=== PATIENT | female | born 1975 | race Caucasian/White ===

== ENCOUNTER → 2023-03-18 10:01 | Outpatient (REF) | payer OTHER, SELFPAY ==
[2023-03-18] VITALS (8 sets, daily range): BP systolic 91–126; BP diastolic 53–81
[2023-03-18 11:38] LABS: Body Fluid Mononuclear 93.8 %; Body Fluid Polymorphonuclear 6.2 %; Body Fluid WBC 324 /CUMM
[2023-03-18 12:01] LABS: Body Fluid Second Tech HB
== END ==
LOC: RADI 10:01
PROVIDERS: ATTENDING PHYSICIAN Internal Medicine Hematology & Oncology; FAMILY PHYSICIAN Family Medicine Geriatric Medicine
DX: C56.9 Malignant neoplasm of unspecified ovary (principal); R18.0 Malignant ascites; J90 Pleural effusion, not elsewhere classified
CPT/HCPCS: 88305; 32555; 36561; 49083; 71045; 76937; 77001; 88112; 88341; 88342; 89051; 99152; 99153; C1788

== ENCOUNTER → 2023-03-25 11:06 | Outpatient (REF) | payer OTHER, SELFPAY ==
[2023-03-25 11:20] VITALS: BP 110/64; BP_SYST 105
[2023-03-25 12:20] VITALS: BP 121/81
[2023-03-25 13:14] LABS: Body Fluid Mononuclear 96.6 %; Body Fluid Polymorphonuclear 3.4 %; Body Fluid WBC 261 /CUMM
[2023-03-25 13:15] LABS: Body Fluid Second Tech EM
== END ==
LOC: RADI 11:06
PROVIDERS: ATTENDING PHYSICIAN Internal Medicine Hematology & Oncology; FAMILY PHYSICIAN Family Medicine Geriatric Medicine
DX: R18.8 Other ascites (principal); J90 Pleural effusion, not elsewhere classified
CPT/HCPCS: 32555; 49083; 71045; 87015; 87070; 87205; 89051

== ENCOUNTER → 2023-03-31 10:16 | Outpatient (REF) | payer OTHER, SELFPAY ==
[2023-03-31 11:50] VITALS: BP 123/76; BP_SYST 97
[2023-03-31 11:52] VITALS: BP 144/76
[2023-03-31 12:21] LABS: Body Fluid Polymorphonuclear 5.6 %; Body Fluid WBC 216 /CUMM
[2023-03-31 12:22] LABS: Body Fluid Mononuclear 94.4 %
[2023-03-31 12:28] LABS: Body Fluid Second Tech CF
== END ==
LOC: RADI 10:16
PROVIDERS: ATTENDING PHYSICIAN Internal Medicine Hematology & Oncology; FAMILY PHYSICIAN Family Medicine Geriatric Medicine
DX: R18.8 Other ascites (principal); J90 Pleural effusion, not elsewhere classified
CPT/HCPCS: 32555; 49083; 71045; 89051

== ENCOUNTER → 2023-10-07 12:10 | Outpatient (REF) | payer OTHER, SELFPAY ==
[2023-10-07 12:33] VITALS: BP 119/86; BP_SYST 72
== END ==
LOC: RADI 12:10
PROVIDERS: ATTENDING PHYSICIAN Physician Assistant Medical; FAMILY PHYSICIAN Family Medicine Geriatric Medicine
DX: Z45.2 Encounter for adjustment and management of vascular access device (principal); Z85.43 Personal history of malignant neoplasm of ovary
CPT/HCPCS: 36590; 77001

== ENCOUNTER 2024-01-12 06:20 | Day surgery (SDC) | payer OTHER, SELFPAY | END 2024-01-12 11:30 | disposition home or self-care (01) | LOC: GI 06:20 | PROVIDERS: ATTENDING PHYSICIAN Internal Medicine Gastroenterology | DX: Z09 Encounter for follow-up examination after completed treatment for conditions other than malignant neoplasm (principal); Z86.0101 Personal history of adenomatous and serrated colon polyps; K51.50 Left sided colitis without complications; K57.30 Diverticulosis of large intestine without perforation or abscess without bleeding; K64.8 Other hemorrhoids; K62.89 Other specified diseases of anus and rectum | CPT/HCPCS: 45380; 88305 ==

== ENCOUNTER → 2024-04-05 14:58 | Outpatient (REF) | payer OTHER, SELFPAY | LOC: WDC 14:58 | PROVIDERS: ATTENDING PHYSICIAN Obstetrics & Gynecology; FAMILY PHYSICIAN Family Medicine Geriatric Medicine | DX: Z12.31 Encounter for screening mammogram for malignant neoplasm of breast (principal) | CPT/HCPCS: 77063; 77067 ==

== ENCOUNTER → 2024-04-13 09:19 | Outpatient (REF) | payer OTHER, SELFPAY | LOC: RCS 09:19 | PROVIDERS: ATTENDING PHYSICIAN Nuclear Medicine Nuclear Cardiology; FAMILY PHYSICIAN Family Medicine Geriatric Medicine | DX: R00.1 Bradycardia, unspecified (principal) | CPT/HCPCS: 93306 ==

== ENCOUNTER → 2024-04-14 13:50 | Outpatient (REF) | payer OTHER, SELFPAY | LOC: RAD 13:50 | PROVIDERS: ATTENDING PHYSICIAN Family Medicine; FAMILY PHYSICIAN Family Medicine Geriatric Medicine | DX: C56.9 Malignant neoplasm of unspecified ovary (principal); R73.01 Impaired fasting glucose; T56.1X1A Toxic effect of mercury and its compounds, accidental (unintentional), initial encounter; R22.1 Localized swelling, mass and lump, neck | CPT/HCPCS: 76536 ==

== ENCOUNTER → 2024-06-10 10:02 | Outpatient (REF) | payer OTHER, SELFPAY | LOC: RAD 10:02 | PROVIDERS: ATTENDING PHYSICIAN Internal Medicine; FAMILY PHYSICIAN Family Medicine Geriatric Medicine | DX: S06.0X0A Concussion without loss of consciousness, initial encounter (principal) | CPT/HCPCS: 70450 ==

== ENCOUNTER 2024-08-31 23:06 | Emergency (ER) | payer OTHER, SELFPAY ==
[2024-08-31 23:07] VITALS: BMI 51.4
[2024-08-31 23:20] VITALS: BP 145/100
[2024-09-01 00:10] VITALS: BP 145/97
[2024-09-01 00:58] LABS: Hematocrit 35.4 % (37.0-47.0); Hemoglobin 12.4 g/dL (12.0-16.0); Mean Corp Hgb Conc. 35.0 g/dL (33.0-37.0); Mean Corpuscular Volume 83.3 fL (81.0-99.0); Nucleated Red Blood Cells % 0 %; Platelet Count 156 10^3/uL (130-400); Red Cell Dist. Width 13.8 % (11.5-14.5)
[2024-09-01 01:00] VITALS: BP 136/82
[2024-09-01] MEDS: MAALOX 50 PO (01:10)
[2024-09-01 01:16] LABS: ALT (SGPT) 19 U/L (0-35); AST (SGOT) 24 U/L (14-36); Albumin 4.8 g/dl (3.5-5.0); Alkaline Phosphatase 52 U/L (38-126); Blood Urea Nitrogen 18 mg/dl (7-17); Calcium 9.3 mg/dl (8.4-10.2); Carbon Dioxide 23 mmol/L (22-30); Chloride 107 mmol/L (98-107); Estimated Creatinine Clearance 100 ml/min; Glucose 116 mg/dl (70-99); Potassium 3.9 mmol/L (3.5-5.1); Sodium 140 mmol/L (135-145); Total Protein 7.4 g/dl (6.3-8.2); eGFR > 60.00
[2024-09-01 01:28] LABS: Troponin I < 0.012 ng/ml
[2024-09-01 02:00] VITALS: BP 126/75
[2024-09-01 03:00] VITALS: BP 121/79
--- NOTE | 2024-09-01 03:57 | ED.GENMED ---
History of Present Illness
General
Chief Complaint: Chest Pain
Source: patient
Exam Limitations: none
Time Seen by Provider: 09/01/24 00:49
Nursing documentation reviewed up to this point in time: agreed with
History of Present Illness
History of Present Illness:
Note:
CHIEF COMPLAINT(S)
Chest pain radiating to the back and throat.
HISTORY OF PRESENT ILLNESS
The patient is a 49-year-old female presenting with chest pain described as a 'horrible burning' sensation radiating from her throat to her back, with an intensity of 8 out of 10. The pain began around 9:30 PM after taking medication and going to
bed. She describes the pain as feeling like something is stuck, extending up into her throat and down into her back. The patient reports that while her mouth is watering, she does not feel nauseous. This sensation of chest pain is new to her, and
she wonders if her medication did not fully pass through the esophagus.
PAST MEDICAL HISTORY
The patient recently underwent a comprehensive cardiac work-up with a cardiology team (Dr. Boston and Dr. Sharp), which did not reveal any significant findings.
FAMILY HISTORY
Family history is notable for the mothers cardiomyopathy and the fathers history of heart attack.
SOCIAL HISTORY
The patient does not smoke, use alcohol excessively, or use drugs. She reports consuming a large amount of caffeine over the past couple of days and does not have any work-related exposures.
MEDICATIONS
The patient mentioned taking medication before bedtime, but did not specify the name or dosage.
REVIEW OF SYSTEMS
- Gastrointestinal: Burning sensation in the chest and throat, radiating to the back. Mouth watering without nausea.
- Cardiovascular: No leg swelling or other symptoms reported.
PHYSICAL EXAM
General: Alert, no acute distress.
Skin: Warm, dry.
Head: Normocephalic, atraumatic.
Neck: Supple, trachea midline.
Ears, nose, mouth, and throat: Oral mucosa moist.
Cardiovascular: Normal peripheral perfusion, no edema.
Respiratory: Respirations are non-labored.
Gastrointestinal: Abdomen nondistended.
Back: Normal range of motion, normal alignment.
Musculoskeletal: Normal ROM, normal strength.
Neurological: Alert and oriented to person, place, time, and situation, no focal neurological deficit observed.
Psychiatric: Cooperative, appropriate mood & affect.
PROBLEM LIST
Acute problems:
- Chest pain with a burning sensation radiating to the back and throat.
PLAN
- Perform a physical examination followed by administering a drink to see if symptoms improve, possibly indicating a reflux or pill esophagitis as the cause.
- Return to re-evaluate after administering the drink and assess for symptom improvement.
DIFFERENTIAL DIAGNOSIS
The Differential Diagnosis includes, in no particular order and is not limited to:
1. Gastroesophageal Reflux Disease (GERD)
2. Esophageal spasm
3. Pill-induced esophagitis
4. Cardiac ischemia
5. Pericarditis
6. Anxiety-related chest pain
7. Costochondritis
8. Peptic ulcer disease
9. Gallbladder disease
10. Aortic dissection
CARE-UPDATE
09/01/24 - 02:38
The patient received a GI cocktail, resulting in a significant reduction in pain levels from 8 to 2.
Disposition:
SUMMARY OF ENCOUNTER
The patient is a 49-year-old female presenting with vertical chest pain and a burning sensation after lying down post-medication intake. She underwent a comprehensive cardiac workup, which was essentially negative. A normal chest x-ray was noted.
The patient was administered sucralfate, leading to significant improvement in her symptoms. The presentation is likely related to pill-induced esophagitis.
DISPOSITION
Discharge.
ASSESSMENT
The patients symptoms and presentation suggest pill-induced esophagitis.
EMERGENCY TREATMENTS ADMINISTERED
Sucralfate was administered in the emergency department, resulting in a significant improvement of symptoms.
REASSESSMENT
Post-administration of sucralfate, the patients symptoms improved markedly.
PLAN
The patient is advised to follow up with her family doctor for further evaluation and management.
PATIENT EDUCATION AND COUNSELING
The patient was educated on the likely diagnosis of pill-induced esophagitis and the importance of follow-up with her primary care provider. Lifestyle modifications such as avoiding lying down immediately after medication intake were discussed.
FOLLOW-UP INSTRUCTIONS
Follow up with the family doctor for continued management and evaluation.
MEDICATION RECONCILIATION
Protonix (pantoprazole) was prescribed upon discharge, along with continued use of sucralfate.
MEDICAL DECISION MAKING
1. Number and Complexity of Problems Addressed: Chronic conditions affecting care are not explicitly specified but include potential esophageal issues. Differential diagnosis includes Gastroesophageal Reflux Disease (GERD), Esophageal spasm,
Pill-induced esophagitis, Cardiac ischemia, Pericarditis, Anxiety-related chest pain, Costochondritis, Peptic ulcer disease, Gallbladder disease, Aortic dissection.
2. Data:
- Category 1: An x-ray was reviewed and found to be normal.
- Category 2: None mentioned.
- Category 3: None mentioned.
3. Risk: Consideration of Admission/Observation: Escalation of care, including admission/observation, was considered given the complexity and risk of the patients presenting complaint. However, the patient is deemed safe for outpatient management
with close follow-up, owing to the reassuring work-up, significant improvement in symptoms, stable vitals, and patients agreement with the discharge plan.
DIAGNOSIS
Pill-induced esophagitis (ICD-10: K21.9).
Past History
Past History
ED Past Medical History: Asthma, GERD, HTN, Hypercholesterolemia, Psychiatric (Colitis) and Other (Migraines, ulcerative colitis, anemia)
ED Past Surgical History: Cholecystectomy and Tonsilectomy
Social History
Tobacco: Non-smoker
Alcohol: None
Drug: None
Personal: Other
Living: other (friend)
Employment: Employed
Family History
Family History: Other
Phy Exam
Physical Exam
Physical Exam:
.
Scores
Heart Score for Chest Pain Patients
STEMI patient?: Not applicable
Course
Orders/Labs/Results
Orders:
Orders
08/31/24 23:09
EKG [Electrocardiogram (*1)] Urgent
Reason for Study: Chest Pain
08/31/24 23:10
EKG- Treatment ONCE
09/01/24 00:32
Cardiac Monitoring- Treatment ONCE
IV Insert/Care/Rem.- Treatment PRN
O2 Therapy [RESP] Urgent
Titrate/Wean O2 to maintain O2 sat greater than (%): 90
Special Instructions: Maintain sats >/=90%
Pulse Ox/spot Check [RESP] Urgent
Quantity: 1
Special Instructions: ON ROOM AIR
09/01/24 00:43
Complete Blood Count/With Diff Urgent
Comprehensive Metabolic Panel Urgent
Troponin I Urgent
09/01/24 01:08
Mag Hydrox/Al Hydrox/Simeth [Maalox] 30 ml Phenobarb/Hyoscy/Atropine/Scop [] 10 ml Viscous Lidocaine 2% [Xylocaine Viscous Cup] 10 ml PO NOW
09/01/24 01:09
Mag Hydrox/Al Hydrox/Simeth [Maalox] 30 ml .ROUTE .STK-MED ONE
Phenobarb/Hyoscy/Atropine/Scop [] 10 ml .ROUTE .STK-MED ONE
Viscous Lidocaine 2% [Xylocaine Viscous Cup] 15 ml .ROUTE .STK-MED ONE
09/01/24 02:59
CR Chest - 2 Views Urgent
Comment:
Reason For Exam: cp
Abnormal Lab Results
09/01/24
00:43
Hct 35.4 L %
(37.0-47.0)
BUN 18 H mg/dl
(7-17)
Glucose 116 H mg/dl
(70-99)
09/01/24 00:43
09/01/24 00:43
Vital Signs
Initial and Last Documented VS:
Initial Vital Signs
Temp Pulse Resp BP Pulse Ox
98.5 F 75 20 145/100 98
08/31/24 23:20 08/31/24 23:20 08/31/24 23:20 08/31/24 23:20 08/31/24 23:20
Last Documented Vital Signs
Temp Pulse Resp BP Pulse Ox
98.5 F 64 18 126/75 92
08/31/24 23:20 09/01/24 02:30 09/01/24 02:30 09/01/24 02:00 09/01/24 02:30
*Radiology
Radiology exam reviewed: preliminary read by ED provider
*Pulse Oximetry
SaO2: 92
Oxygen Mode of Delivery: Room air
Patient hypoxic: no
*Critical Care Note
Total Time (30-74mins, 75-104mins- exclusive of procedures): Not Applicable
ED Attending Note
-
Portions of this chart may have been created with voice recognition software.� Occasional wrong word or��sound alike� substitutions may have occurred due to the inherent limitations of voice recognition software.
Discharge Plan
Departure
Patient Disposition: Home (Routine Discharge)
Date of Disposition: 09/01/24
Time of Disposition: 03:58
Patient with high blood pressure during this ER visit?: Yes
Discharge Problem:
Esophagitis
Instructions: Acid Reflux and GERD in Adults (DC), Esophagitis, BLOOD PRESSURE
Prescriptions:
New
sucralfate [Carafate] 100 mg/mL suspension
10 ml PO QID Qty: 200 0RF
pantoprazole [Protonix] 20 mg tablet,delayed release (DR/EC)
20 mg PO DAILY Qty: 20 0RF
No Action
montelukast 10 MG tablet
10 mg PO QPM
lisinopril 5 MG tablet
5 mg PO DAILY
sertraline 50 MG tablet
50 mg PO QPM
rosuvastatin 5 MG tablet
5 mg PO QPM
levocetirizine [Xyzal] 5 MG tablet
5 mg PO QPM
icosapent ethyl [Vascepa] 1 GM capsule
2 gm PO BID
lansoprazole [Prevacid] 30 mg Capsule,Delayed Release(Dr/Ec)
30 mg PO BID
albuterol sulfate 0.63 mg/3 mL Solution For Nebulization
0.63 mg INHALATION R TID
ibuprofen 400 mg Tablet
400 mg PO Q6HPRN PRN (Reason: mild pain)
cholecalciferol (vitamin D3) [Vitamin D3] 25 mcg (1,000 unit) Tablet
25 mcg PO DAILY
calcium carbonate-vitamin D3 [Calcium 500 + D] 500 mg-10 mcg (400 unit) Tablet
1 tab PO DAILY
turmeric 400 mg Capsule
400 mg PO DAILY
Referrals:
Bety Ladd DO [Family Provider, Family Practice]
Activity Restrictions/Additional Instructions:
Your prescriptions were sent electronically to the pharmacy that you specified.
Thank You for choosing [facility].
It was a pleasure meeting you and taking part in your care. We hope for your continued healing and wellness.
Please read discharge instructions in their entirety. However, they are for general education and may not describe your exact diagnosis at discharge. Information on your ER visit and medical conditions were discussed with you along with appropriate
follow up information...
If indicated, please take your medications as instructed and indicated on discharge paperwork.
Please schedule a follow up appointment as directed. Call to schedule an appointment
Please return to the emergency department with ANY change in, persisting, or worsening of symptoms. If any of your symptoms do not improve, or persist, or become more severe within 6-12 hours, please return to the emergency department for further
care.
Please return to the emergency department if you develop a headache, neck pain/stiffness, fever greater than 100.4F, chest pain, shortness of breath, persistent nausea, vomiting, slurred speech, difficulty walking, numbness/tingling, weakness, signs
of infection or any other symptoms that are worrisome to you.
If you have any questions or concerns please do not hesitate to call the Hospital at or E-mail me directly at [email or web address]
Interventions
Interventions:
*Risk Screen - Suicide Last Done: 08/31/24 23:20
*General Assessment Last Done: 09/01/24 00:23
*Neglect/Abuse Screening Last Done: 08/31/24 23:20
*ED- Fall Risk Assessment Last Done: 09/01/24 00:23
*ED COVID-19 Vaccine History Last Done: 09/01/24 00:23
ED- Cardiac Assessment Last Done: 09/01/24 00:23
Discharge Date and Time
Print Language: NIUEAN
== END 2024-09-01 04:13 | disposition home or self-care (01) ==
LOC: EMR 23:06
PROVIDERS: EMERGENCY PHYSICIAN Student in an Organized Health Care Education/Training Program; FAMILY PHYSICIAN Family Medicine Geriatric Medicine
DX: K21.00 Gastro-esophageal reflux disease with esophagitis, without bleeding (principal); E78.00 Pure hypercholesterolemia, unspecified; I10 Essential (primary) hypertension; J45.909 Unspecified asthma, uncomplicated
CPT/HCPCS: 99285; 71046; 80053; 84484; 85025; 93005

== ENCOUNTER → 2025-01-03 13:10 | Outpatient (REF) | payer OTHER, SELFPAY | LOC: RAD 13:10 | PROVIDERS: ATTENDING PHYSICIAN Family Medicine Geriatric Medicine | DX: M85.9 Disorder of bone density and structure, unspecified (principal) | CPT/HCPCS: 77080 ==

== ENCOUNTER → 2025-01-19 06:41 | Outpatient (REF) | payer OTHER, SELFPAY | LOC: PAVMRI 06:41 | PROVIDERS: ATTENDING PHYSICIAN Neurological Surgery; FAMILY PHYSICIAN Family Medicine Geriatric Medicine | DX: M54.2 Cervicalgia (principal) | CPT/HCPCS: 72141 ==